=== PATIENT | female | born 1965 | race American Indian/Alaskan Native ===

== ENCOUNTER 2019-12-25 11:21 | Outpatient (CLI) | payer OTHER ==
--- NOTE | 2019-12-25 13:37 | XRay Report ---
Shoulder bilateral 4 views INDICATION: Bilateral shoulder pain IMPRESSION: Both shoulders demonstrate moderate AC joint degenerative change. No fracture or subluxat ion is identified. Signer Name: Sandeep Denney MD Signed: 12/25/2019 1:32 PM Workstation Name: [id number]
--- NOTE | 2019-12-25 13:37 | XRay Report ---
Lumbar spine 3 views INDICATION: Low back pain. IMPRESSION: Mild multilevel discogenic and facet arthropathy causing moderate bilateral neural forami nal stenosis at L5-S1, left greater than right. Signer Name: Sandeep Denney MD Signed: 12/25/2019 1:33 PM Workstation Name: [id number]
--- NOTE | 2019-12-25 13:38 | XRay Report ---
Left knee 3 views INDICATION: Left knee pain. IMPRESSION: Small moderate-sized left knee effusion. Minimal tricompartmental degenerative changes. N o fracture or subluxation. Mild prepatellar edema. Signer Name: Sandeep Denney MD Signed: 12/25/2019 1:33 PM Workstation Name: [id number]
== END 2019-12-25 11:22 | disposition home or self-care (01) ==
LOC: XRAY 11:21
PROVIDERS: ATTEND Internal Medicine
DX: M25.462 Effusion, left knee (principal); M51.37 Other intervertebral disc degeneration, lumbosacral region; M47.817 Spondylosis without myelopathy or radiculopathy, lumbosacral region; M48.07 Spinal stenosis, lumbosacral region; M19.011 Primary osteoarthritis, right shoulder; M19.012 Primary osteoarthritis, left shoulder; K58.9 Irritable bowel syndrome, unspecified; G47.00 Insomnia, unspecified
CPT/HCPCS: 72100

== ENCOUNTER 2020-09-13 14:02 | Outpatient (CLI) | payer OTHER ==
--- NOTE | 2020-09-14 08:32 | Mammography Report ---
DIGITAL SCREENING MAMMOGRAM WITH CAD, 09/13/2020 CLINICAL INFORMATION / INDICATION: Routine screening mammography. TECHNIQUE: Digital bilateral 2D mammography was obtained in the craniocaudal and mediolateral obliqu e projections. This examination was interpreted with the benefit of Computer-Aided Detection analysis . COMPARISON: None available. FINDINGS: Breast Density: There are scattered areas of fibroglandular density. No dominant mass, suspicious calcifications, or architectural distortion in either breast. Prepectoral saline implants are noted with collapse of the left breast implant. IMPRESSION: No mammographic evidence of malignancy. Follow up recommendation: Routine yearly BI-RADS Category 2: Benign. A "normal" or negative report should not discourage follow up or biopsy of a clinically significant f inding. A written summary of these findings will be mailed to the patient. The patient will be entered into a mammography reporting system which will generate a reminder letter for the patient's next appointmen t at the appropriate interval. [employer] recommends yearly mammograms starting at age 40 and continuing as l rin as a woman is in good health. Breast MRI is recommended for women with an approximate 20-25% or greater lifetime risk of breast cancer, including women with a strong family history of breast or ova gianna cancer or who have been treated for Hodgkin's disease. Signer Name: Armen Matthews MD Signed: 09/14/2020 8:27 AM Workstation Name: [id number]
== END 2020-09-13 14:03 | disposition home or self-care (01) ==
LOC: MAMMO 14:02
PROVIDERS: ATTEND Nurse Practitioner
DX: Z12.31 Encounter for screening mammogram for malignant neoplasm of breast (principal); N64.89 Other specified disorders of breast
CPT/HCPCS: 77067

== ENCOUNTER 2021-09-14 10:15 | Outpatient (CLI) | payer OTHER ==
--- NOTE | 2021-09-16 13:52 | Mammography Report ---
DIGITAL SCREENING MAMMOGRAM WITH CAD, 09/14/2021 CLINICAL INFORMATION / INDICATION: Routine screening mammography TECHNIQUE: Digital 2D mammography was obtained in the craniocaudal and mediolateral oblique projectio ns. This examination was interpreted with the benefit of Computer-Aided Detection analysis. COMPARISON: 09/13/2020 FINDINGS: Breast Density: There are scattered areas of fibroglandular density. No dominant mass, suspicious calcifications, or architectural distortion in either breast. Bilateral implants are again seen with mild collapse unchanged on the right and nearly complete colla pse on the left mildly more prominent. IMPRESSION: No mammographic evidence of malignancy. Follow up recommendation: Routine yearly screening mammogram. BI-RADS Category 2: BENIGN. A "normal" or negative report should not discourage follow up or biopsy of a clinically significant f inding. A written summary of these findings will be mailed to the patient. The patient will be entered into a mammography reporting system which will generate a reminder letter for the patient's next appointmen t at the appropriate interval. The [employer] recommends yearly mammograms starting at age 40 and continuing as l rin as a woman is in good health. Breast MRI is recommended for women with an approximate 20-25% or greater lifetime risk of breast cancer, including women with a strong family history of breast or ova gianna cancer or who have been treated for Hodgkin's disease. Signer Name: Ez Pichardo MD Signed: 09/16/2021 1:48 PM Workstation Name: [id number]
== END 2021-09-14 10:16 | disposition home or self-care (01) ==
LOC: MAMMO 10:15 → SPVWC 10:15
PROVIDERS: ATTEND Family Medicine
DX: Z12.31 Encounter for screening mammogram for malignant neoplasm of breast (principal)
CPT/HCPCS: 77067